=== PATIENT | male | born 1945 | race Caucasian/White ===

== ENCOUNTER 2022-10-02 08:27 | Inpatient (IN) | payer MEDICARE, MEDICAID ==
[~2022-10-02] VITALS: Ht 170.2 cm; Wt 75.8 kg
[2022-10-02] VITALS (8 sets, daily range): BP systolic 133–163; BP diastolic 62–83
[2022-10-02 09:50] LABS: CHLORIDE 102 mEq/L (98-107)
[2022-10-02 09:59] LABS: ETHANOL BLOOD < 10 mg/dL
[2022-10-02] MEDS ORDERED: CALCIUM CHLORIDE 1GM/10ML SYR IV ONE (10:15)
[2022-10-02] MEDS ORDERED: SODIUM BICARBONATE 8.4% 1 MEQ/ML 50ML SYR IV ONE (10:15)
[2022-10-02] MEDS ORDERED: ALBUTEROL (0.083%) 2.5MG/3ML NEB HHN ONE (10:15)
[2022-10-02] MEDS ORDERED: SODIUM BICARBONATE 8.4% 1 MEQ/ML 50ML SYR IV NR (10:45)
[2022-10-02] MEDS ORDERED: INSULIN REGULAR (HUMULIN R) 300UNITS/3ML VIAL IV ONE (11:00)
[2022-10-02] MEDS ORDERED: DEXTROSE 50% WATER 50ML SYRINGE IV ONE (11:00)
[2022-10-02 12:36] LABS: BASOPHILS % 0.3 % (0.0-2.0); EOSINOPHILS % 0.1 % (0.0-5.0); HEMATOCRIT. 21.9 % (42.0-52.0); HEMOGLOBIN. 7.2 g/dL (14.0-18.0); LYMPHOCYTES % 41.9 % (20.0-50.0); MEAN CORPUSCULAR HEMOGLOBIN 33.9 pg (28.0-32.0); MEAN CORPUSCULAR VOLUME 103.2 fL (80.0-94.0); MEAN PLATELET VOLUME 8.1 fl (7.4-10.4); MONOCYTES % 4.4 % (2.0-8.0); NEUTROPHILS % 53.3 % (40.0-76.0); RED BLOOD CELL COUNT 2.12 mill/uL (4.7-6.1); RED CELL DISTRIBUTION WIDTH 19.9 % (11.6-14.6)
[2022-10-02 12:52] LABS: PLATELET 49 x1000/uL (130-400)
[2022-10-02 12:56] LABS: PLATELET ESTIMATE MARKEDLY DECREASED
[2022-10-02] MEDS ORDERED: GUAIFENESIN 200MG/10ML SUGAR FREE UDC PO PRN (13:45)
[2022-10-02] MEDS ORDERED: NA PHOS,M-B/NA PHOS,DI-BA ENEMA 118ML PR PRN (13:45)
[2022-10-02] MEDS ORDERED: ENOXAPARIN 40MG/0.4ML SYR SUBCUT SCH (13:45)
[2022-10-02] MEDS ORDERED: ACETAMINOPHEN 325MG TABLET PO PRN (13:45)
[2022-10-02] MEDS ORDERED: MAGNESIUM/ALUMINUM HYDROXIDE/SIMETHICONE 30ML UDC PO PRN (13:45)
[2022-10-02] MEDS ORDERED: IPRATROPIUM/ALBUTEROL 0.5-3(2.5)MG/3ML NEB NEB PRN (13:45)
[2022-10-02] MEDS ORDERED: NITROGLYCERIN 0.4MG TABLET SL SL PRN (13:45)
[2022-10-02] MEDS ORDERED: ONDANSETRON HCL 4MG/2ML INJ IV PRN (13:45)
[2022-10-02] MEDS ORDERED: ZOLPIDEM TARTRATE 5MG TABLET PO PRN (13:45)
[2022-10-02] MEDS ORDERED: DOCUSATE SODIUM 100MG CAPSULE PO PRN (13:45)
[2022-10-02] MEDS ORDERED: SODIUM POLYSTYRENE SULFONATE 15 G/60 ML BOT PO SCH (14:00)
[2022-10-02 14:54] LABS: T4 FREE 0.62 ng/dL (0.76-1.46)
[2022-10-02 15:18] LABS: VITAMIN B12 SERUM 721 pg/mL (211-911)
[2022-10-02 15:30] LABS: FOLIC ACID (FOLATE) SERUM > 20.00 ng/mL (>5.38)
[2022-10-02] MEDS: AMLODIPINE 10MG TABLET PO SCH (16:08)
[2022-10-02 18:14] LABS: CREATINE KINASE 255 IU/L (39-308); CREATINE KINASE MB FRACTION 2.7 ng/mL (0.5-3.6)
[2022-10-02] MEDS: SEVELAMER CARBONATE 800 MG TABLET PO SCH (18:15)
[2022-10-02] MEDS ORDERED: FAMOTIDINE 20MG TABLET PO SCH (21:00)
[2022-10-02 23:31] LABS: CREATINE KINASE MB FRACTION 1.7 ng/mL (0.5-3.6)
[2022-10-03] VITALS (9 sets, daily range): BP systolic 121–199; BP diastolic 45–77
[2022-10-03] MEDS: ACETAMINOPHEN 325MG TABLET PO PRN ×2 (02:56→22:39)
[2022-10-03 06:10] LABS: BASOPHILS % 0.5 % (0.0-2.0); EOSINOPHILS % 0.3 % (0.0-5.0); LYMPHOCYTES % 32.2 % (20.0-50.0); MEAN CORPUSCULAR HEMOGLOBIN 34.6 pg (28.0-32.0); MEAN CORPUSCULAR VOLUME 107.9 fL (80.0-94.0); MONOCYTES % 5.9 % (2.0-8.0); NEUTROPHILS % 61.1 % (40.0-76.0); PLATELET 55 x1000/uL (130-400); RED BLOOD CELL COUNT 1.88 mill/uL (4.7-6.1); RED CELL DISTRIBUTION WIDTH 20.5 % (11.6-14.6)
[2022-10-03 06:49] LABS: CHLORIDE 104 mEq/L (98-107)
[2022-10-03 06:59] LABS: HEMATOCRIT. 20.2 % (42.0-52.0); HEMOGLOBIN. 6.5 g/dL (14.0-18.0)
[2022-10-03 07:02] LABS: PHOSPHORUS 5.2 mg/dL (2.5-4.9)
[2022-10-03] MEDS ORDERED: ASPIRIN 81MG EC TABLET PO SCH (09:00)
[2022-10-03] MEDS: SEVELAMER CARBONATE 800 MG TABLET PO SCH ×3 (09:30→18:20)
[2022-10-03] MEDS: AMLODIPINE 10MG TABLET PO SCH (09:30)
[2022-10-03] MEDS: LEVOTHYROXINE SODIUM 25MCG TABLET PO SCH (09:30)
[2022-10-03] MEDS: FAMOTIDINE 20MG TABLET PO SCH (09:31)
[2022-10-03] MEDS ORDERED: CARV6.2548 PO (13:48)
[2022-10-03] MEDS ORDERED: APIX2.5T PO (13:48)
[2022-10-03] MEDS ORDERED: ATOR40TA70 PO (13:48)
[2022-10-03] MEDS ORDERED: PANT40TA51 MT (13:48)
[2022-10-03] MEDS ORDERED: NIFE90TA60 PO (13:48)
[2022-10-03] MEDS ORDERED: FOLI0.8T23 MT (13:51)
[2022-10-03] MEDS ORDERED: PRED-276 MT (13:51)
[2022-10-03] MEDS ORDERED: MULT-1146 MT (13:51)
[2022-10-03] MEDS ORDERED: GABA-532 PO (13:51)
[2022-10-03] MEDS ORDERED: SERT20OR6 MT (13:51)
[2022-10-03] MEDS: CLONIDINE 0.1MG TABLET PO PRN ×2 (13:52→23:22)
[2022-10-03] MEDS ORDERED: ALBUTEROL (0.083%) 2.5MG/3ML NEB HHN PRN (14:00)
[2022-10-03] MEDS ORDERED: IPRATROPIUM BROMIDE (0.02%) 0.5MG/2.5ML NEB HHN PRN (14:00)
[2022-10-03] MEDS: NITROGLYCERIN OINT 1GM/INCH UDPKT TD SCH ×2 (14:10→21:05)
[2022-10-03 15:08] LABS: HEPATITIS B SURFACE ANTIGEN NEGATIVE
[2022-10-03] MEDS: LEVETIRACETAM 500MG/5ML CUP PO SCH (21:05)
[2022-10-03] MEDS: EPOETIN ALFA-EPBX 4,000 UNIT/ML VIAL SUBCUT SCH (21:05)
[2022-10-04] VITALS (12 sets, daily range): BP systolic 104–157; BP diastolic 52–82
[2022-10-04] MEDS: NITROGLYCERIN OINT 1GM/INCH UDPKT TD SCH ×3 (06:02→21:18)
[2022-10-04 06:28] LABS: BASOPHILS % 0.3 % (0.0-2.0); EOSINOPHILS % 4.7 % (0.0-5.0); HEMOGLOBIN. 7.2 g/dL (14.0-18.0); LYMPHOCYTES % 22.3 % (20.0-50.0); MEAN CORPUSCULAR HEMOGLOBIN 33.9 pg (28.0-32.0); MEAN PLATELET VOLUME 8.9 fl (7.4-10.4); MONOCYTES % 4.4 % (2.0-8.0); NEUTROPHILS % 68.3 % (40.0-76.0); PLATELET 61 x1000/uL (130-400); RED BLOOD CELL COUNT 2.11 mill/uL (4.7-6.1); RED CELL DISTRIBUTION WIDTH 20.5 % (11.6-14.6)
[2022-10-04 07:01] LABS: PHOSPHORUS 4.9 mg/dL (2.5-4.9)
[2022-10-04] MEDS: SEVELAMER CARBONATE 800 MG TABLET PO SCH ×3 (08:49→17:39)
[2022-10-04] MEDS: LEVETIRACETAM 500MG/5ML CUP PO SCH (08:49)
[2022-10-04] MEDS: FAMOTIDINE 20MG TABLET PO SCH (08:50)
[2022-10-04] MEDS: LEVOTHYROXINE SODIUM 25MCG TABLET PO SCH (08:50)
[2022-10-04] MEDS: AMLODIPINE 10MG TABLET PO SCH (08:50)
[2022-10-04] MEDS: ACETAMINOPHEN 325MG TABLET PO PRN (09:33)
[2022-10-05] VITALS (11 sets, daily range): BP systolic 126–155; BP diastolic 55–82
[2022-10-05] MEDS: NITROGLYCERIN OINT 1GM/INCH UDPKT TD SCH ×3 (06:12→21:14)
[2022-10-05] MEDS: ACETAMINOPHEN 325MG TABLET PO PRN (06:17)
[2022-10-05 08:49] LABS: BASOPHILS % 0.5 % (0.0-2.0); EOSINOPHILS % 3.1 % (0.0-5.0); LYMPHOCYTES % 34.5 % (20.0-50.0); MEAN CORPUSCULAR HEMOGLOBIN 34.1 pg (28.0-32.0); MEAN CORPUSCULAR VOLUME 101.8 fL (80.0-94.0); MEAN PLATELET VOLUME 8.4 fl (7.4-10.4); MONOCYTES % 4.1 % (2.0-8.0); NEUTROPHILS % 57.8 % (40.0-76.0); PLATELET 58 x1000/uL (130-400); RED BLOOD CELL COUNT 1.99 mill/uL (4.7-6.1); RED CELL DISTRIBUTION WIDTH 20.1 % (11.6-14.6)
[2022-10-05 09:08] LABS: PHOSPHORUS 3.3 mg/dL (2.5-4.9)
[2022-10-05 09:17] LABS: HEMATOCRIT. 20.3 % (42.0-52.0); HEMOGLOBIN. 6.8 g/dL (14.0-18.0)
[2022-10-05] MEDS: LEVOTHYROXINE SODIUM 25MCG TABLET PO SCH (09:41)
[2022-10-05] MEDS: SEVELAMER CARBONATE 800 MG TABLET PO SCH ×3 (09:41→17:38)
[2022-10-05] MEDS: FAMOTIDINE 20MG TABLET PO SCH (09:42)
[2022-10-05] MEDS: AMLODIPINE 10MG TABLET PO SCH (09:42)
[2022-10-05] MEDS ORDERED: SODIUM POLYSTYRENE SULFONATE 15 G/60 ML BOT PO NR (16:30)
[2022-10-05 20:10] LABS: HEMATOCRIT 24.7 % (42.0-52.0); HEMOGLOBIN 8.2 g/dL (14.0-18.0)
[2022-10-05] MEDS: EPOETIN ALFA-EPBX 4,000 UNIT/ML VIAL SUBCUT SCH (21:13)
[2022-10-06] VITALS: BP 140/70
[2022-10-06 04:00] VITALS: BP 173/88
[2022-10-06] MEDS: CLONIDINE 0.1MG TABLET PO PRN (05:02)
[2022-10-06] MEDS: NITROGLYCERIN OINT 1GM/INCH UDPKT TD SCH ×3 (06:02→20:54)
[2022-10-06 08:00] VITALS: BP 134/61
[2022-10-06 08:09] LABS: BASOPHILS % 0.2 % (0.0-2.0); EOSINOPHILS % 1.5 % (0.0-5.0); HEMATOCRIT. 26.3 % (42.0-52.0); HEMOGLOBIN. 8.9 g/dL (14.0-18.0); LYMPHOCYTES % 31.2 % (20.0-50.0); MEAN CORPUSCULAR HEMOGLOBIN 33.2 pg (28.0-32.0); MEAN CORPUSCULAR VOLUME 98.4 fL (80.0-94.0); MEAN PLATELET VOLUME 8.3 fl (7.4-10.4); MONOCYTES % 3.8 % (2.0-8.0); NEUTROPHILS % 63.3 % (40.0-76.0); PLATELET 67 x1000/uL (130-400); RED BLOOD CELL COUNT 2.67 mill/uL (4.7-6.1); RED CELL DISTRIBUTION WIDTH 21.5 % (11.6-14.6)
[2022-10-06] MEDS: SEVELAMER CARBONATE 800 MG TABLET PO SCH ×3 (08:28→18:48)
[2022-10-06] MEDS: FAMOTIDINE 20MG TABLET PO SCH (08:28)
[2022-10-06] MEDS: LEVOTHYROXINE SODIUM 25MCG TABLET PO SCH (08:28)
[2022-10-06] MEDS: AMLODIPINE 10MG TABLET PO SCH (08:29)
[2022-10-06 09:42] LABS: PHOSPHORUS 3.6 mg/dL (2.5-4.9)
[2022-10-06 12:00] VITALS: BP 138/61
[2022-10-06] MEDS ORDERED: SODIUM POLYSTYRENE SULFONATE 15 G/60 ML BOT PO NR (14:45)
[2022-10-06 16:00] VITALS: BP 142/65
[2022-10-06] MEDS: LISINOPRIL 20MG TABLET PO SCH (18:48)
[2022-10-06 20:00] VITALS: BP 158/81
[2022-10-07] VITALS (13 sets, daily range): BP systolic 135–174; BP diastolic 56–84
[2022-10-07] MEDS: ACETAMINOPHEN 325MG TABLET PO PRN ×2 (02:14→10:11)
[2022-10-07] MEDS: NITROGLYCERIN OINT 1GM/INCH UDPKT TD SCH ×3 (06:02→22:07)
[2022-10-07 06:24] LABS: BASOPHILS % 0.3 % (0.0-2.0); EOSINOPHILS % 2.7 % (0.0-5.0); LYMPHOCYTES % 43.8 % (20.0-50.0); MEAN CORPUSCULAR HEMOGLOBIN 32.5 pg (28.0-32.0); MEAN CORPUSCULAR VOLUME 97.4 fL (80.0-94.0); MEAN PLATELET VOLUME 8.2 fl (7.4-10.4); MONOCYTES % 4.2 % (2.0-8.0); PLATELET 54 x1000/uL (130-400); RED BLOOD CELL COUNT 2.46 mill/uL (4.7-6.1); RED CELL DISTRIBUTION WIDTH 21.2 % (11.6-14.6)
[2022-10-07] MEDS: LEVOTHYROXINE SODIUM 25MCG TABLET PO SCH (07:40)
[2022-10-07 08:10] LABS: CHLORIDE 105 mEq/L (98-107)
[2022-10-07] MEDS: SEVELAMER CARBONATE 800 MG TABLET PO SCH ×3 (08:10→18:47)
[2022-10-07 08:17] LABS: PHOSPHORUS 4.4 mg/dL (2.5-4.9)
[2022-10-07] MEDS: FAMOTIDINE 20MG TABLET PO SCH (09:00)
[2022-10-07] MEDS: LISINOPRIL 20MG TABLET PO SCH (09:00)
[2022-10-07] MEDS: AMLODIPINE 10MG TABLET PO SCH (09:00)
[2022-10-07] MEDS ORDERED: TRAMADOL 50MG TABLET PO PRN (15:00)
[2022-10-07] MEDS ORDERED: NALOXONE HCL 0.4MG/ML VIAL IV PRN (15:00)
[2022-10-07] MEDS ORDERED: IOHEXOL-300 100 ML BOTTLE ONE (22:58)
[2022-10-08] VITALS: BP 162/80
[2022-10-08] MEDS: CLONIDINE 0.1MG TABLET PO PRN (00:36)
[2022-10-08 04:00] VITALS: BP 141/68
[2022-10-08] MEDS: NITROGLYCERIN OINT 1GM/INCH UDPKT TD SCH (05:20)
[2022-10-08 05:47] LABS: BASOPHILS % 0.2 % (0.0-2.0); EOSINOPHILS % 3.1 % (0.0-5.0); HEMATOCRIT. 22.3 % (42.0-52.0); HEMOGLOBIN. 7.5 g/dL (14.0-18.0); LYMPHOCYTES % 41.3 % (20.0-50.0); MEAN CORPUSCULAR HEMOGLOBIN 32.6 pg (28.0-32.0); MEAN CORPUSCULAR VOLUME 96.5 fL (80.0-94.0); MEAN PLATELET VOLUME 7.9 fl (7.4-10.4); MONOCYTES % 5.7 % (2.0-8.0); NEUTROPHILS % 49.7 % (40.0-76.0); PLATELET 55 x1000/uL (130-400); RED BLOOD CELL COUNT 2.32 mill/uL (4.7-6.1); RED CELL DISTRIBUTION WIDTH 20.2 % (11.6-14.6)
[2022-10-08] MEDS: LEVOTHYROXINE SODIUM 25MCG TABLET PO SCH (06:47)
[2022-10-08 08:00] VITALS: BP 170/78
[2022-10-08] MEDS: LISINOPRIL 20MG TABLET PO SCH (08:50)
[2022-10-08] MEDS: SEVELAMER CARBONATE 800 MG TABLET PO SCH ×2 (08:50→13:29)
[2022-10-08] MEDS: FAMOTIDINE 20MG TABLET PO SCH (08:50)
[2022-10-08] MEDS: AMLODIPINE 10MG TABLET PO SCH (08:50)
[2022-10-08 12:00] VITALS: BP 175/78
[2022-10-08] MEDS: ACETAMINOPHEN 325MG TABLET PO PRN (13:29)
[2022-10-08 14:59] VITALS: BP 175/78
[2022-10-08 16:00] VITALS: BP 170/79
[2022-10-08] MEDS ORDERED: HYDRALAZINE HCL 25MG TABLET PO SCH (21:00)
== END 2022-10-08 15:47 | DRG 64 ==
LOC: ER 08:27 → MICUSO 11:45 → EDBEDREQ 11:47 → EDBEDREQTM 11:47 → SUPCPDRO 13:27 → 7WST 10-03 00:45
PROVIDERS: ADMIT Internal Medicine; ATTEND Internal Medicine
PROC: 5A1D70Z Performance of Urinary Filtration, Intermittent, Less than 6 Hours Per Day (ICD-10-PCS; principal; 2022-10-02)
PROC: 30233N1 Transfusion of Nonautologous Red Blood Cells into Peripheral Vein, Percutaneous Approach (ICD-10-PCS; 2022-10-03)
PROC: 5A1D70Z Performance of Urinary Filtration, Intermittent, Less than 6 Hours Per Day (ICD-10-PCS; 2022-10-04)
PROC: 5A1D70Z Performance of Urinary Filtration, Intermittent, Less than 6 Hours Per Day (ICD-10-PCS; 2022-10-07)
DX: I62.9 Nontraumatic intracranial hemorrhage, unspecified (principal); E43 Unspecified severe protein-calorie malnutrition; G92.8 Other toxic encephalopathy; N18.6 End stage renal disease; I12.0 Hypertensive chronic kidney disease with stage 5 chronic kidney disease or end stage renal disease; D61.818 Other pancytopenia; E87.1 Hypo-osmolality and hyponatremia; E87.5 Hyperkalemia; E03.9 Hypothyroidism, unspecified; E78.5 Hyperlipidemia, unspecified; D63.1 Anemia in chronic kidney disease; H02.401 Unspecified ptosis of right eyelid; H51.11 Convergence insufficiency; H05.20 Unspecified exophthalmos; Z68.26 Body mass index [BMI] 26.0-26.9, adult; Z99.2 Dependence on renal dialysis; Z82.49 Family history of ischemic heart disease and other diseases of the circulatory system
CPT/HCPCS: 36415; 70496; 70498; 70544; 70547; 70551; 71045; 71250; 80048; 80053; 80061; 80320; 82140; 82550; 82553; 82607; 82746; 82962; 83036; 83540; 83550; 83735; 84100; 84439; 84443; 84484; 85014; 85018; 85025; 86078; 86705; 86706; 86709; 86803; 86850; 86900; 86920; 87340; 90935; 92523; 93306; 93970; 94644; 97162; 97166; 99291; A6261; C1893; J0885; J1815; J3490; P9016; Q9967; G0480

== ENCOUNTER 2022-10-09 20:50 | Inpatient (IN) | payer MEDICARE, MEDICAID ==
[~2022-10-09] VITALS: Ht 175.3 cm; Wt 62.2 kg
[2022-10-09] VITALS (14 sets, daily range): BP systolic 98–191; BP diastolic 26–111
[~2022-10-09 20:50] MED LIST: APIX2.5T PO; ATOR40TA70 PO; CARV6.2548 PO; FOLI0.8T23 MT; GABA-532 PO; MULT-1146 MT; NIFE90TA60 PO; PANT40TA51 MT; PRED-855 MT; SERT20OR6 MT
[2022-10-09] MEDS ORDERED: IPRATROPIUM/ALBUTEROL 0.5-3(2.5)MG/3ML NEB NEB PRN (21:00)
[2022-10-09] MEDS ORDERED: CLONIDINE 0.1MG TABLET PO PRN (21:00)
[2022-10-09] MEDS ORDERED: ACETAMINOPHEN 650MG SUPP PR PRN ×2 (21:00)
[2022-10-09 21:27] LABS: CHLORIDE 101 mEq/L (98-107)
[2022-10-09 21:29] LABS: BASOPHILS % 0.3 % (0.0-2.0); EOSINOPHILS % 0.1 % (0.0-5.0); HEMATOCRIT. 29.8 % (42.0-52.0); HEMOGLOBIN. 9.5 g/dL (14.0-18.0); LYMPHOCYTES % 25.3 % (20.0-50.0); MEAN CORPUSCULAR HEMOGLOBIN 32.2 pg (28.0-32.0); MEAN CORPUSCULAR VOLUME 100.6 fL (80.0-94.0); MONOCYTES % 9.1 % (2.0-8.0); NEUTROPHILS % 65.2 % (40.0-76.0); PLATELET 53 x1000/uL (130-400); RED BLOOD CELL COUNT 2.96 mill/uL (4.7-6.1); RED CELL DISTRIBUTION WIDTH 21.1 % (11.6-14.6)
[2022-10-09] MEDS ORDERED: DEXT 5%/0.9% NACL 1,000 ML IV SCH (21:30)
[2022-10-09] MEDS: FAMOTIDINE 20MG/2ML VIAL IV SCH (22:06)
[2022-10-09] MEDS ORDERED: DEXTROSE 50% WATER 50ML SYRINGE IV PRN (22:15)
[2022-10-09] MEDS ORDERED: INSULIN REGULAR (HUMULIN R) 300UNITS/3ML VIAL IV NR (22:30)
[2022-10-09] MEDS ORDERED: CALCIUM CHLORIDE 1GM/10ML SYR IV NR (22:30)
[2022-10-09] MEDS ORDERED: DEXTROSE 50% WATER 50ML SYRINGE IV NR (22:30)
[2022-10-09] MEDS ORDERED: ALBUTEROL (0.083%) 2.5MG/3ML NEB HHN NR (22:30)
[2022-10-09] MEDS ORDERED: SODIUM BICARBONATE 8.4% 1 MEQ/ML 50ML SYR IV NR (22:30)
[2022-10-09] MEDS: BLOOD SUGAR DIAGNOSTIC STRIP TEST SCH (23:14)
[2022-10-10] VITALS (74 sets, daily range): BP systolic 87–182; BP diastolic 44–107
[2022-10-10 00:01] LABS: CREATINE KINASE MB FRACTION 2.1 ng/mL (0.5-3.6)
[2022-10-10 02:44] LABS: BG BASE EXCESS -3.3 mmol/L (-2.0-2.0); BG CARBOXYHEMOGLOBIN 0.3 % (0.5-1.5); BG DEOXYHEMOGLOBIN 14.6 % (0.0-5.0); BG FRACTION INSPIRED OXYGEN 28; BG HCO3 ACT 21.1 mmol/L (22.0-26.0); BG METHEMOGLOBIN 0.3 % (0.0-1.5); BG OXYGEN SATURATION 85.3 % (92.0-98.5); BG OXYHEMOGLOBIN 84.8 % (94.0-97.0); BG PCO2 34.7 mmHg (35.0-45.0); BG PH 7.401 (7.350-7.450); BG PO2 57.8 mmHg (75.0-100.0); BG SAMPLE SITE RIGHT RADIAL; BG TOTAL HEMOGLOBIN 7.9 g/dL (12.0-18.0); BG VENT MODE NASAL CANNULA
[2022-10-10] MEDS ORDERED: LORAZEPAM 2MG/ML CPJ IV NR (03:00)
[2022-10-10] MEDS: HYDRALAZINE 20MG/ML VIAL IV PRN (04:10)
[2022-10-10] MEDS: BLOOD SUGAR DIAGNOSTIC STRIP TEST SCH ×4 (05:32→23:07)
[2022-10-10 05:36] LABS: BASOPHILS % 0.1 % (0.0-2.0); HEMATOCRIT. 23.9 % (42.0-52.0); HEMOGLOBIN. 7.9 g/dL (14.0-18.0); LYMPHOCYTES % 25.3 % (20.0-50.0); MEAN CORPUSCULAR HEMOGLOBIN 32.9 pg (28.0-32.0); MEAN CORPUSCULAR VOLUME 99.1 fL (80.0-94.0); MEAN PLATELET VOLUME 8.7 fl (7.4-10.4); MONOCYTES % 6.5 % (2.0-8.0); NEUTROPHILS % 68.1 % (40.0-76.0); PLATELET 56 x1000/uL (130-400); RED BLOOD CELL COUNT 2.41 mill/uL (4.7-6.1); RED CELL DISTRIBUTION WIDTH 20.7 % (11.6-14.6)
[2022-10-10 06:08] LABS: CREATINE KINASE MB FRACTION 3.5 ng/mL (0.5-3.6); T4 FREE 0.95 ng/dL (0.76-1.46)
[2022-10-10 06:19] LABS: FOLIC ACID (FOLATE) SERUM > 20.00 ng/mL (>5.38); VITAMIN B12 SERUM > 2000.0 pg/mL (211-911)
[2022-10-10 06:34] LABS: BG BASE EXCESS -1.2 mmol/L (-2.0-2.0); BG DEOXYHEMOGLOBIN 4.8 % (0.0-5.0); BG FRACTION INSPIRED OXYGEN 28; BG HCO3 ACT 22.7 mmol/L (22.0-26.0); BG METHEMOGLOBIN 0.6 % (0.0-1.5); BG OXYGEN SATURATION 95.2 % (92.0-98.5); BG OXYHEMOGLOBIN 94.6 % (94.0-97.0); BG PCO2 34.4 mmHg (35.0-45.0); BG PH 7.438 (7.350-7.450); BG SAMPLE SITE RIGHT RADIAL; BG TOTAL HEMOGLOBIN 7.8 g/dL (12.0-18.0); BG VENT MODE NASAL CANNULA
[2022-10-10] MEDS ORDERED: DOPAMINE 400MG/250ML PREMIX 250 ML IV PRN (07:15)
[2022-10-10] MEDS ORDERED: IOHEXOL-350 100 ML BOTTLE ONE (09:17)
[2022-10-10] MEDS: FAMOTIDINE 20MG/2ML VIAL IV SCH (09:52)
[2022-10-10] MEDS: LEVOTHYROXINE SODIUM 25MCG TABLET PO SCH (09:52)
[2022-10-10 10:05] LABS: FERRITIN > 1650 ng/mL (22-322)
[2022-10-10] MEDS: MEROPENEM 500 MG in SODIUM CHLORIDE 0.9% 100 ML IV SCH (12:49)
[2022-10-10 13:09] LABS: CREATINE KINASE MB FRACTION 5.6 ng/mL (0.5-3.6)
[2022-10-10] MEDS ORDERED: VANCOMYCIN 1G PREMIX 200 ML IV NR (14:00)
[2022-10-10 21:39] LABS: CREATINE KINASE MB FRACTION 5.5 ng/mL (0.5-3.6)
[2022-10-11] VITALS (30 sets, daily range): BP systolic 87–166; BP diastolic 30–79
[2022-10-11] MEDS: BLOOD SUGAR DIAGNOSTIC STRIP TEST SCH ×4 (05:44→23:58)
[2022-10-11 06:27] LABS: BASOPHILS % 0.3 % (0.0-2.0); EOSINOPHILS % 1.3 % (0.0-5.0); HEMATOCRIT. 22.7 % (42.0-52.0); HEMOGLOBIN. 7.4 g/dL (14.0-18.0); LYMPHOCYTES % 29.4 % (20.0-50.0); MEAN CORPUSCULAR HEMOGLOBIN 32.2 pg (28.0-32.0); MEAN CORPUSCULAR VOLUME 99.5 fL (80.0-94.0); MONOCYTES % 3.3 % (2.0-8.0); NEUTROPHILS % 65.7 % (40.0-76.0); PLATELET 101 x1000/uL (130-400); RED BLOOD CELL COUNT 2.28 mill/uL (4.7-6.1); RED CELL DISTRIBUTION WIDTH 20.7 % (11.6-14.6)
[2022-10-11] MEDS: LEVOTHYROXINE SODIUM 25MCG TABLET PO SCH (10:18)
[2022-10-11] MEDS: FAMOTIDINE 20MG/2ML VIAL IV SCH (10:19)
[2022-10-11] MEDS ORDERED: ACETAMINOPHEN 650MG/20.3ML UDC PO PRN (10:45)
[2022-10-11] MEDS: MEROPENEM 500 MG in SODIUM CHLORIDE 0.9% 100 ML IV SCH (12:33)
[2022-10-11] MEDS ORDERED: ALBUTEROL (0.083%) 2.5MG/3ML NEB HHN PRN (15:15)
[2022-10-11] MEDS ORDERED: IPRATROPIUM BROMIDE (0.02%) 0.5MG/2.5ML NEB HHN PRN (15:15)
[2022-10-11] MEDS: EPOETIN ALFA-EPBX 4,000 UNIT/ML VIAL SUBCUT SCH (20:54)
[2022-10-12] VITALS (14 sets, daily range): BP systolic 137–190; BP diastolic 61–103
[2022-10-12] MEDS: BLOOD SUGAR DIAGNOSTIC STRIP TEST SCH ×3 (06:23→18:07)
[2022-10-12] MEDS: LEVOTHYROXINE SODIUM 25MCG TABLET PO SCH (06:24)
[2022-10-12 08:11] LABS: BASOPHILS % 0.4 % (0.0-2.0); LYMPHOCYTES % 36.4 % (20.0-50.0); MEAN CORPUSCULAR HEMOGLOBIN 32.5 pg (28.0-32.0); MEAN CORPUSCULAR VOLUME 98.6 fL (80.0-94.0); MONOCYTES % 5.7 % (2.0-8.0); NEUTROPHILS % 54.5 % (40.0-76.0); RED BLOOD CELL COUNT 2.16 mill/uL (4.7-6.1)
[2022-10-12 08:16] LABS: HEMATOCRIT. 21.3 % (42.0-52.0)
[2022-10-12] MEDS: FAMOTIDINE 20MG/2ML VIAL IV SCH (09:23)
[2022-10-12] MEDS: ONDANSETRON HCL 4MG/2ML INJ IV PRN ×2 (09:23→20:19)
[2022-10-12] MEDS: MEROPENEM 500 MG in SODIUM CHLORIDE 0.9% 100 ML IV SCH (13:13)
[2022-10-12] MEDS: AMLODIPINE 2.5MG TABLET PO SCH (13:13)
[2022-10-12 16:00] LABS: PLATELET ESTIMATE MARKEDLY DECREASED
[2022-10-12 16:01] LABS: PLATELET 49 x1000/uL (130-400)
[2022-10-12] MEDS ORDERED: VANCOMYCIN 500MG PREMIX 100 ML IV NR (18:00)
[2022-10-13] VITALS (7 sets, daily range): BP systolic 146–160; BP diastolic 56–90
[2022-10-13] MEDS: BLOOD SUGAR DIAGNOSTIC STRIP TEST SCH ×4 (00:19→18:05)
[2022-10-13] MEDS: LEVOTHYROXINE SODIUM 25MCG TABLET PO SCH (05:50)
[2022-10-13] MEDS: GUAIFENESIN 200MG/10ML SUGAR FREE UDC PO PRN ×2 (08:48→20:40)
[2022-10-13] MEDS: AMLODIPINE 2.5MG TABLET PO SCH (09:07)
[2022-10-13 10:42] LABS: BASOPHILS % 0.1 % (0.0-2.0); EOSINOPHILS % 0.1 % (0.0-5.0); HEMATOCRIT. 28.8 % (42.0-52.0); HEMOGLOBIN. 9.7 g/dL (14.0-18.0); LYMPHOCYTES % 13.8 % (20.0-50.0); MEAN CORPUSCULAR HEMOGLOBIN 31.7 pg (28.0-32.0); MEAN CORPUSCULAR VOLUME 94.6 fL (80.0-94.0); MEAN PLATELET VOLUME 7.2 fl (7.4-10.4); MONOCYTES % 5.3 % (2.0-8.0); NEUTROPHILS % 80.7 % (40.0-76.0); RED BLOOD CELL COUNT 3.05 mill/uL (4.7-6.1); RED CELL DISTRIBUTION WIDTH 18.6 % (11.6-14.6)
[2022-10-13] MEDS: MEROPENEM 500 MG in SODIUM CHLORIDE 0.9% 100 ML IV SCH (11:30)
[2022-10-13 13:05] LABS: PLATELET 41 x1000/uL (130-400)
[2022-10-14] VITALS (19 sets, daily range): BP systolic 120–208; BP diastolic 60–110
[2022-10-14] MEDS: BLOOD SUGAR DIAGNOSTIC STRIP TEST SCH ×4 (02:03→17:06)
[2022-10-14 06:47] LABS: BASOPHILS % 0.5 % (0.0-2.0); HEMATOCRIT. 31.9 % (42.0-52.0); HEMOGLOBIN. 10.5 g/dL (14.0-18.0); LYMPHOCYTES % 11.2 % (20.0-50.0); MEAN CORPUSCULAR HEMOGLOBIN 31.2 pg (28.0-32.0); MEAN CORPUSCULAR VOLUME 94.8 fL (80.0-94.0); MEAN PLATELET VOLUME 9.2 fl (7.4-10.4); MONOCYTES % 6.6 % (2.0-8.0); NEUTROPHILS % 81.7 % (40.0-76.0); RED BLOOD CELL COUNT 3.36 mill/uL (4.7-6.1); RED CELL DISTRIBUTION WIDTH 19.9 % (11.6-14.6)
[2022-10-14] MEDS: LEVOTHYROXINE SODIUM 25MCG TABLET PO SCH (07:21)
[2022-10-14 08:00] LABS: PHOSPHORUS 4.3 mg/dL (2.5-4.9)
[2022-10-14 08:11] LABS: PLATELET 42 x1000/uL (130-400)
[2022-10-14] MEDS ORDERED: AMLODIPINE 5MG TABLET PO SCH (09:00)
[2022-10-14] MEDS ORDERED: LORAZEPAM 2MG/ML CPJ IV PRN (09:30)
[2022-10-14] MEDS: MEROPENEM 500 MG in SODIUM CHLORIDE 0.9% 100 ML IV SCH (12:09)
[2022-10-14] MEDS: HYDRALAZINE 20MG/ML VIAL IV PRN ×2 (12:10→17:06)
[2022-10-14] MEDS: HYDRALAZINE HCL 50MG TABLET PO SCH ×2 (13:08→21:45)
[2022-10-14] MEDS: FOLIC ACID/VITAMIN B COMP W-C TABLET PO SCH (14:30)
[2022-10-14] MEDS: DEXT 5%/0.9% NACL 1,000 ML IV SCH (16:28)
[2022-10-14] MEDS ORDERED: VANCOMYCIN 500MG PREMIX 100 ML IV SCH (16:30)
[2022-10-14 18:49] LABS: INR 1.3; PROTHROMBIN TIME 14.2 sec (9.6-11.0)
[2022-10-14] MEDS ORDERED: VANCOMYCIN 1G PREMIX 200 ML IV SCH (19:14)
[2022-10-14 19:46] LABS: HEPATITIS B SURFACE ANTIGEN NEGATIVE
[2022-10-15] VITALS (19 sets, daily range): BP systolic 139–161; BP diastolic 65–96
[2022-10-15] MEDS: BLOOD SUGAR DIAGNOSTIC STRIP TEST SCH ×4 (00:13→18:38)
[2022-10-15] MEDS: HYDRALAZINE HCL 50MG TABLET PO SCH ×3 (05:52→21:11)
[2022-10-15 06:35] LABS: INR 1.6; PROTHROMBIN TIME 16.3 sec (9.6-11.0)
[2022-10-15] MEDS: LEVOTHYROXINE SODIUM 25MCG TABLET PO SCH (06:40)
[2022-10-15 06:42] LABS: BASOPHILS % 0.1 % (0.0-2.0); EOSINOPHILS % 0.2 % (0.0-5.0); HEMOGLOBIN. 9.6 g/dL (14.0-18.0); LYMPHOCYTES % 13.3 % (20.0-50.0); MEAN CORPUSCULAR HEMOGLOBIN 31.7 pg (28.0-32.0); MEAN CORPUSCULAR VOLUME 96.1 fL (80.0-94.0); MEAN PLATELET VOLUME 8.4 fl (7.4-10.4); MONOCYTES % 6.2 % (2.0-8.0); NEUTROPHILS % 80.2 % (40.0-76.0); RED BLOOD CELL COUNT 3.02 mill/uL (4.7-6.1); RED CELL DISTRIBUTION WIDTH 19.5 % (11.6-14.6)
[2022-10-15] MEDS: FOLIC ACID/VITAMIN B COMP W-C TABLET PO SCH (09:00)
[2022-10-15] MEDS: AMLODIPINE 10MG TABLET PO SCH (09:00)
[2022-10-15 12:00] LABS: PLATELET 29 x1000/uL (130-400)
[2022-10-15] MEDS: DEXT 5%/0.9% NACL 1,000 ML IV SCH (15:54)
[2022-10-15] MEDS: PHYTONADIONE 10MG/ML AMP SUBCUT SCH (15:54)
[2022-10-16] VITALS (12 sets, daily range): BP systolic 140–188; BP diastolic 72–90
[2022-10-16] MEDS: BLOOD SUGAR DIAGNOSTIC STRIP TEST SCH ×4 (00:15→17:42)
[2022-10-16 01:11] LABS: HEMOGLOBIN 8.5 g/dL (14.0-18.0)
[2022-10-16 01:50] LABS: INR 1.4
[2022-10-16] MEDS: HYDRALAZINE HCL 50MG TABLET PO SCH ×3 (05:45→22:00)
[2022-10-16] MEDS: LEVOTHYROXINE SODIUM 25MCG TABLET PO SCH (05:45)
[2022-10-16 08:07] LABS: BASOPHILS % 0.2 % (0.0-2.0); EOSINOPHILS % 0.3 % (0.0-5.0); HEMATOCRIT. 27.3 % (42.0-52.0); HEMOGLOBIN. 8.9 g/dL (14.0-18.0); LYMPHOCYTES % 19.6 % (20.0-50.0); MEAN CORPUSCULAR HEMOGLOBIN 31.7 pg (28.0-32.0); MEAN CORPUSCULAR VOLUME 96.8 fL (80.0-94.0); MEAN PLATELET VOLUME 8.7 fl (7.4-10.4); MONOCYTES % 7.5 % (2.0-8.0); NEUTROPHILS % 72.4 % (40.0-76.0); RED BLOOD CELL COUNT 2.82 mill/uL (4.7-6.1); RED CELL DISTRIBUTION WIDTH 18.9 % (11.6-14.6)
[2022-10-16 08:12] LABS: PLATELET 32 x1000/uL (130-400)
[2022-10-16 08:34] LABS: PHOSPHORUS 4.4 mg/dL (2.5-4.9)
[2022-10-16] MEDS: PHYTONADIONE 10MG/ML AMP SUBCUT SCH (09:27)
[2022-10-16] MEDS: FOLIC ACID/VITAMIN B COMP W-C TABLET PO SCH (10:57)
[2022-10-16] MEDS: AMLODIPINE 10MG TABLET PO SCH (10:58)
[2022-10-16] MEDS: DEXT 5%/0.9% NACL 1,000 ML IV SCH (15:37)
[2022-10-16] MEDS: HYDRALAZINE 20MG/ML VIAL IV PRN (17:06)
[2022-10-16] MEDS: EPOETIN ALFA-EPBX 4,000 UNIT/ML VIAL SUBCUT SCH (21:00)
[2022-10-17] VITALS (14 sets, daily range): BP systolic 133–188; BP diastolic 63–93
[2022-10-17] MEDS: HYDRALAZINE 20MG/ML VIAL IV PRN ×3 (01:07→18:16)
[2022-10-17 03:57] LABS: BASOPHILS % 0.2 % (0.0-2.0); EOSINOPHILS % 0.2 % (0.0-5.0); HEMATOCRIT. 27.9 % (42.0-52.0); HEMOGLOBIN. 9.1 g/dL (14.0-18.0); LYMPHOCYTES % 16.2 % (20.0-50.0); MEAN CORPUSCULAR HEMOGLOBIN 31.1 pg (28.0-32.0); MEAN CORPUSCULAR VOLUME 95.2 fL (80.0-94.0); MEAN PLATELET VOLUME 8.2 fl (7.4-10.4); MONOCYTES % 7.8 % (2.0-8.0); NEUTROPHILS % 75.6 % (40.0-76.0); RED BLOOD CELL COUNT 2.93 mill/uL (4.7-6.1); RED CELL DISTRIBUTION WIDTH 18.3 % (11.6-14.6)
[2022-10-17 04:05] LABS: INR 1.3; PROTHROMBIN TIME 13.6 sec (9.6-11.0)
[2022-10-17 04:20] LABS: PLATELET 35 x1000/uL (130-400)
[2022-10-17] MEDS: BLOOD SUGAR DIAGNOSTIC STRIP TEST SCH ×5 (06:00→21:45)
[2022-10-17] MEDS: HYDRALAZINE HCL 50MG TABLET PO SCH ×3 (06:00→21:45)
[2022-10-17] MEDS: LEVOTHYROXINE SODIUM 25MCG TABLET PO SCH (06:40)
[2022-10-17] MEDS: FOLIC ACID/VITAMIN B COMP W-C TABLET PO SCH (08:13)
[2022-10-17] MEDS: AMLODIPINE 10MG TABLET PO SCH (08:13)
[2022-10-17] MEDS: PHYTONADIONE 10MG/ML AMP SUBCUT SCH (08:17)
[2022-10-17] MEDS ORDERED: VANCOMYCIN 1G PREMIX 200 ML IV NR (11:00)
[2022-10-17] MEDS ORDERED: FENTANYL CITRATE/PF 50MCG/ML 2ML VIAL ONE (14:23)
[2022-10-17] MEDS ORDERED: LIDOCAINE HCL 1% 10 MG/ML 10ML VIAL ONE (14:23)
[2022-10-17] MEDS: DEXT 5%/0.9% NACL 1,000 ML IV SCH (15:18)
[2022-10-17] MEDS ORDERED: ONDANSETRON HCL 4MG/2ML INJ IV PRN (15:30)
[2022-10-17] MEDS ORDERED: ONDANSETRON HCL 4MG/2ML INJ ONE (15:34)
[2022-10-17 19:03] LABS: HEMATOCRIT 27.1 % (42.0-52.0); HEMOGLOBIN 8.8 g/dL (14.0-18.0)
[2022-10-18] VITALS (17 sets, daily range): BP systolic 127–167; BP diastolic 45–84
[2022-10-18 02:32] LABS: HEMATOCRIT 26.4 % (42.0-52.0)
[2022-10-18] MEDS: BLOOD SUGAR DIAGNOSTIC STRIP TEST SCH ×3 (06:00→18:00)
[2022-10-18] MEDS: METOCLOPRAMIDE HCL 10MG/2ML VIAL IV SCH ×4 (06:46→22:49)
[2022-10-18] MEDS: HYDRALAZINE HCL 50MG TABLET PO SCH ×3 (06:46→22:48)
[2022-10-18] MEDS: LEVOTHYROXINE SODIUM 25MCG TABLET PO SCH (06:46)
[2022-10-18 07:11] LABS: BASOPHILS % 0.1 % (0.0-2.0); EOSINOPHILS % 0.2 % (0.0-5.0); HEMATOCRIT. 25.4 % (42.0-52.0); HEMOGLOBIN. 8.3 g/dL (14.0-18.0); LYMPHOCYTES % 13.7 % (20.0-50.0); MEAN CORPUSCULAR HEMOGLOBIN 31.4 pg (28.0-32.0); MEAN CORPUSCULAR VOLUME 96.1 fL (80.0-94.0); MEAN PLATELET VOLUME 8.1 fl (7.4-10.4); MONOCYTES % 6.8 % (2.0-8.0); NEUTROPHILS % 79.2 % (40.0-76.0); RED BLOOD CELL COUNT 2.64 mill/uL (4.7-6.1); RED CELL DISTRIBUTION WIDTH 18.7 % (11.6-14.6)
[2022-10-18 08:02] LABS: CHLORIDE 107 mEq/L (98-107)
[2022-10-18 08:47] LABS: PLATELET 35 x1000/uL (130-400)
[2022-10-18] MEDS: FOLIC ACID/VITAMIN B COMP W-C TABLET PO SCH (09:25)
[2022-10-18] MEDS: AMLODIPINE 10MG TABLET PO SCH (09:25)
[2022-10-18 13:03] LABS: HEMATOCRIT 26.7 % (42.0-52.0); HEMOGLOBIN 8.7 g/dL (14.0-18.0)
[2022-10-18] MEDS: DEXT 5%/0.9% NACL 1,000 ML IV SCH (14:34)
[2022-10-18] MEDS: EPOETIN ALFA-EPBX 4,000 UNIT/ML VIAL SUBCUT SCH (22:48)
[2022-10-19] VITALS: BP 157/72
[2022-10-19 04:00] VITALS: BP 157/78
[2022-10-19] MEDS: BLOOD SUGAR DIAGNOSTIC STRIP TEST SCH ×5 (06:13→23:23)
[2022-10-19] MEDS: HYDRALAZINE HCL 50MG TABLET PO SCH ×3 (06:24→20:57)
[2022-10-19] MEDS: METOCLOPRAMIDE HCL 10MG/2ML VIAL IV SCH ×4 (06:24→23:23)
[2022-10-19] MEDS: LEVOTHYROXINE SODIUM 25MCG TABLET PO SCH (06:24)
[2022-10-19 08:00] VITALS: BP 210/110
[2022-10-19] MEDS: AMLODIPINE 10MG TABLET PO SCH (09:22)
[2022-10-19] MEDS: FOLIC ACID/VITAMIN B COMP W-C TABLET PO SCH (09:22)
[2022-10-19] MEDS: HYDRALAZINE 20MG/ML VIAL IV PRN ×2 (09:24→17:26)
[2022-10-19 12:00] VITALS: BP 177/81
[2022-10-19 16:00] VITALS: BP 167/74
[2022-10-19 20:00] VITALS: BP 154/81
[2022-10-20] VITALS: BP 156/72
[2022-10-20 04:00] VITALS: BP 157/77
[2022-10-20] MEDS: BLOOD SUGAR DIAGNOSTIC STRIP TEST SCH ×4 (05:39→23:29)
[2022-10-20] MEDS: LEVOTHYROXINE SODIUM 25MCG TABLET PO SCH (05:43)
[2022-10-20] MEDS: HYDRALAZINE HCL 50MG TABLET PO SCH ×3 (05:43→20:28)
[2022-10-20 08:00] VITALS: BP 161/78
[2022-10-20] MEDS: AMLODIPINE 10MG TABLET PO SCH (09:56)
[2022-10-20] MEDS: FOLIC ACID/VITAMIN B COMP W-C TABLET PO SCH (09:56)
[2022-10-20 12:00] VITALS: BP 158/81
[2022-10-20 16:00] VITALS: BP 148/74
[2022-10-20 20:00] VITALS: BP 157/79
[2022-10-21] VITALS (12 sets, daily range): BP systolic 111–163; BP diastolic 45–86
[2022-10-21] MEDS: BLOOD SUGAR DIAGNOSTIC STRIP TEST SCH ×4 (05:06→23:44)
[2022-10-21] MEDS: HYDRALAZINE HCL 50MG TABLET PO SCH ×3 (05:06→21:29)
[2022-10-21] MEDS: LEVOTHYROXINE SODIUM 25MCG TABLET PO SCH (05:42)
[2022-10-21 06:43] LABS: BASOPHILS % 0.2 % (0.0-2.0); EOSINOPHILS % 0.9 % (0.0-5.0); HEMATOCRIT. 27.3 % (42.0-52.0); HEMOGLOBIN. 9.2 g/dL (14.0-18.0); LYMPHOCYTES % 24.6 % (20.0-50.0); MEAN CORPUSCULAR HEMOGLOBIN 33.6 pg (28.0-32.0); MEAN CORPUSCULAR VOLUME 99.4 fL (80.0-94.0); MEAN PLATELET VOLUME 8.5 fl (7.4-10.4); MONOCYTES % 7.4 % (2.0-8.0); NEUTROPHILS % 66.9 % (40.0-76.0); RED BLOOD CELL COUNT 2.74 mill/uL (4.7-6.1); RED CELL DISTRIBUTION WIDTH 18.8 % (11.6-14.6)
[2022-10-21 07:49] LABS: PHOSPHORUS 4.2 mg/dL (2.5-4.9)
[2022-10-21 08:46] LABS: PLATELET 46 x1000/uL (130-400)
[2022-10-21] MEDS: AMLODIPINE 10MG TABLET PO SCH (09:00)
[2022-10-21] MEDS: FOLIC ACID/VITAMIN B COMP W-C TABLET PO SCH (10:14)
[2022-10-21] MEDS: EPOETIN ALFA-EPBX 4,000 UNIT/ML VIAL SUBCUT SCH (21:29)
[2022-10-21 21:57] LABS: PLATELET ESTIMATE MARKEDLY DECREASED
[2022-10-22] VITALS: BP 143/80
[2022-10-22 04:00] VITALS: BP 157/81
[2022-10-22] MEDS: BLOOD SUGAR DIAGNOSTIC STRIP TEST SCH ×3 (05:17→17:19)
[2022-10-22] MEDS: HYDRALAZINE HCL 50MG TABLET PO SCH ×2 (06:14→15:01)
[2022-10-22] MEDS: LEVOTHYROXINE SODIUM 25MCG TABLET PO SCH (06:14)
[2022-10-22 07:18] LABS: BASOPHILS % 0.4 % (0.0-2.0); EOSINOPHILS % 0.7 % (0.0-5.0); HEMATOCRIT. 22.7 % (42.0-52.0); HEMOGLOBIN. 7.8 g/dL (14.0-18.0); LYMPHOCYTES % 21.5 % (20.0-50.0); MEAN CORPUSCULAR HEMOGLOBIN 34.7 pg (28.0-32.0); MEAN CORPUSCULAR VOLUME 100.6 fL (80.0-94.0); MEAN PLATELET VOLUME 8.5 fl (7.4-10.4); MONOCYTES % 5.9 % (2.0-8.0); NEUTROPHILS % 71.5 % (40.0-76.0); RED BLOOD CELL COUNT 2.26 mill/uL (4.7-6.1); RED CELL DISTRIBUTION WIDTH 18.3 % (11.6-14.6)
[2022-10-22 08:00] VITALS: BP 154/74
[2022-10-22 09:03] LABS: PLATELET 45 x1000/uL (130-400)
[2022-10-22] MEDS: FOLIC ACID/VITAMIN B COMP W-C TABLET PO SCH (09:42)
[2022-10-22] MEDS: AMLODIPINE 10MG TABLET PO SCH (09:42)
[2022-10-22 12:00] VITALS: BP 149/67
[2022-10-22 16:00] VITALS: BP 129/65
[2022-10-22 19:20] VITALS: BP 129/65
== END 2022-10-22 19:50 | DRG 871 ==
LOC: CVICU 20:50 → 5EST 10-11 13:40 → 3WST 10-11 18:18 → 7EST 10-14 22:45
PROVIDERS: ADMIT Internal Medicine; ATTEND Internal Medicine
PROC: 5A1D70Z Performance of Urinary Filtration, Intermittent, Less than 6 Hours Per Day (ICD-10-PCS; 2022-10-10)
PROC: 30233N1 Transfusion of Nonautologous Red Blood Cells into Peripheral Vein, Percutaneous Approach (ICD-10-PCS; 2022-10-12)
PROC: 5A1D70Z Performance of Urinary Filtration, Intermittent, Less than 6 Hours Per Day (ICD-10-PCS; 2022-10-12)
PROC: 5A1D70Z Performance of Urinary Filtration, Intermittent, Less than 6 Hours Per Day (ICD-10-PCS; 2022-10-14)
PROC: 30233K1 Transfusion of Nonautologous Frozen Plasma into Peripheral Vein, Percutaneous Approach (ICD-10-PCS; 2022-10-15)
PROC: 30233R1 Transfusion of Nonautologous Platelets into Peripheral Vein, Percutaneous Approach (ICD-10-PCS; 2022-10-15)
PROC: 5A1D70Z Performance of Urinary Filtration, Intermittent, Less than 6 Hours Per Day (ICD-10-PCS; 2022-10-16)
PROC: 0DB68ZX Excision of Stomach, Via Natural or Artificial Opening Endoscopic, Diagnostic (ICD-10-PCS; principal; 2022-10-17)
PROC: 0DH63UZ Insertion of Feeding Device into Stomach, Percutaneous Approach (ICD-10-PCS; 2022-10-17)
PROC: 5A1D70Z Performance of Urinary Filtration, Intermittent, Less than 6 Hours Per Day (ICD-10-PCS; 2022-10-18)
PROC: 5A1D70Z Performance of Urinary Filtration, Intermittent, Less than 6 Hours Per Day (ICD-10-PCS; 2022-10-21)
DX: A41.9 Sepsis, unspecified organism (principal); G92.8 Other toxic encephalopathy; I21.4 Non-ST elevation (NSTEMI) myocardial infarction; N18.6 End stage renal disease; J96.91 Respiratory failure, unspecified with hypoxia; I50.31 Acute diastolic (congestive) heart failure; J69.0 Pneumonitis due to inhalation of food and vomit; U07.1 COVID-19; I13.2 Hypertensive heart and chronic kidney disease with heart failure and with stage 5 chronic kidney disease, or end stage renal disease; G81.91 Hemiplegia, unspecified affecting right dominant side; R47.01 Aphasia; E46 Unspecified protein-calorie malnutrition; E87.5 Hyperkalemia; E03.9 Hypothyroidism, unspecified; E78.5 Hyperlipidemia, unspecified; Z20.822 Contact with and (suspected) exposure to COVID-19; D53.9 Nutritional anemia, unspecified; R13.10 Dysphagia, unspecified; I44.0 Atrioventricular block, first degree; K29.70 Gastritis, unspecified, without bleeding; K29.80 Duodenitis without bleeding; D63.1 Anemia in chronic kidney disease; R62.7 Adult failure to thrive; D69.6 Thrombocytopenia, unspecified; R26.9 Unspecified abnormalities of gait and mobility; H02.401 Unspecified ptosis of right eyelid; H51.11 Convergence insufficiency; R47.02 Dysphasia; I16.0 Hypertensive urgency; Z66 Do not resuscitate; Z99.2 Dependence on renal dialysis; Z95.2 Presence of prosthetic heart valve; Z91.15 Patient's noncompliance with renal dialysis; Z68.20 Body mass index [BMI] 20.0-20.9, adult; Z86.73 Personal history of transient ischemic attack (TIA), and cerebral infarction without residual deficits; Z95.828 Presence of other vascular implants and grafts; D50.9 Iron deficiency anemia, unspecified; Z86.718 Personal history of other venous thrombosis and embolism
CPT/HCPCS: 36415; 36600; 70551; 71045; 71275; 74018; 74230; 80048; 80053; 80202; 82140; 82375; 82550; 82553; 82607; 82728; 82746; 82805; 82962; 83540; 83550; 83735; 83880; 84100; 84145; 84439; 84443; 84484; 85014; 85018; 85025; 85049; 85379; 85384; 86705; 86709; 86803; 86850; 86900; 86920; 86927; 87340; 87426; 88305; 90935; 92610; 92611; 93005; 94644; 97162; 97166; 97530; 97535; J0360; J0885; J1815; J2060; J2185; J2405; J2765; J3010; J3370; J3430; J3490; J7042; J7050; P9016; P9017; P9034; Q9967

== ENCOUNTER 2023-05-21 00:01 | Emergency (ER) | payer MEDICARE, MEDICAID ==
[~2023-05-21] VITALS: Ht 180.3 cm; Wt 50.1 kg
[2023-05-21 00:12] VITALS: O2SAT 99
[2023-05-21 01:07] LABS: BASOPHILS % 0.5 % (0.0-2.0); EOSINOPHILS % 1.4 % (0.0-5.0); HEMATOCRIT. 30.3 % (42.0-52.0); HEMOGLOBIN. 9.6 g/dL (14.0-18.0); LYMPHOCYTES % 22.3 % (20.0-50.0); MEAN CORPUSCULAR HEMOGLOBIN 28.2 pg (28.0-32.0); MEAN CORPUSCULAR HGB CONC 31.7 g/dL (31.0-37.0); MEAN CORPUSCULAR VOLUME 89.2 fL (80.0-94.0); MEAN PLATELET VOLUME 7.8 fl (7.4-10.4); MONOCYTES % 7.2 % (2.0-8.0); NEUTROPHILS % 68.6 % (40.0-76.0); PLATELET 155 x1000/uL (130-400); RED BLOOD CELL COUNT 3.39 mill/uL (4.7-6.1); RED CELL DISTRIBUTION WIDTH 18.8 % (11.6-14.6); WHITE BLOOD COUNT 4.9 x1000/uL (4.5-11.0)
[2023-05-21 01:30] LABS: CHLORIDE 100 mEq/L (98-107); INDEX HEMOLYSI 1 (1-3); INDEX ICTERIC 1 (1-4); INDEX LIPEMIC 1 (1-3); POTASSIUM 4.6 mEq/L (3.5-5.1); SODIUM 135 mEq/L (136-145)
[2023-05-21 01:41] LABS: ALANINE AMINOTRANSFERASE 26 IU/L (13-61); ASPARTATE AMINOTRANSFERASE 61 IU/L (15-37); BILIRUBIN TOTAL 0.4 mg/dL (0.1-1.0); CARBON DIOXIDE 28 mEq/L (21-32); GLUCOSE 138 mg/dL (70-105); PROTEIN TOTAL 7.1 g/dL (6.0-8.3); TROPONIN I HIGH SENSITIVITY 54 ng/L (<78); UREA NITROGEN BLOOD 53 mg/dL (7-21)
[2023-05-21] MEDS ORDERED: SODIUM CHLORIDE 0.9% 1000ML BAG (SEPSIS BOLUS) IV ONE (01:45)
[2023-05-21 02:32] LABS: CREATININE 5.2 mg/dL (0.6-1.3)
[2023-05-21 03:05] LABS: INR 1.2; PROTHROMBIN TIME 13.1 sec (9.6-11.0)
[2023-05-21 03:50] LABS: CHLORIDE 100 mEq/L (98-107); INDEX HEMOLYSI 2 (1-3); INDEX ICTERIC 1 (1-4); INDEX LIPEMIC 1 (1-3); POTASSIUM 4.6 mEq/L (3.5-5.1); SODIUM 136 mEq/L (136-145)
[2023-05-21 03:54] LABS: TROPONIN I HIGH SENSITIVITY 58 ng/L (<78)
[2023-05-21 03:57] LABS: ALANINE AMINOTRANSFERASE 26 IU/L (13-61); ASPARTATE AMINOTRANSFERASE 58 IU/L (15-37); BILIRUBIN TOTAL 0.3 mg/dL (0.1-1.0); CALCIUM 9.1 mg/dL (8.5-10.1); CARBON DIOXIDE 31 mEq/L (21-32); GLUCOSE 163 mg/dL (70-105); PROTEIN TOTAL 7.1 g/dL (6.0-8.3); UREA NITROGEN BLOOD 56 mg/dL (7-21)
[2023-05-21 04:01] VITALS: TEMP 98.6
[2023-05-21 04:59] LABS: CREATININE 5.2 mg/dL (0.6-1.3)
[2023-05-21 05:00] LABS: CLARITY URINE BLOODY (CLEAR); COLOR URINE AMBER (YELLOW); GLUCOSE URINE NEGATIVE (NEGATIVE); KETONES URINE NEGATIVE (NEGATIVE); NITRITE URINE POSITIVE (NEGATIVE); OCCULT BLOOD URINE TRACE (NEGATIVE); PH URINE 7.5 (4.5-8.0); PROTEIN URINE 1+ (NEGATIVE); SPECIFIC GRAVITY URINE 1.021 (1.005-1.030); UROBILINOGEN URINE 0.2 E.U./dL (0.2-1.0)
[2023-05-21 05:01] LABS: LEUKOCYTE ESTERASE URINE 3+ (NEGATIVE); WBC URINE TNTC /hpf (0-2)
[2023-05-21 05:02] LABS: BACTERIA URINE 4+; SQUAMOUS EPITHELIAL CELL URINE 1+ /lpf (RARE/1+)
[2023-05-21] MEDS ORDERED: ACETAMINOPHEN 650MG/20.3ML UDC PO ONE (05:45)
[2023-05-21] MEDS ORDERED: CEFTRIAXONE 1GM PREMIX 50 ML IV ONE (07:15)
[2023-05-21 08:00] VITALS: BP 159/72; PULSE 78; RESP 12
== END 2023-05-21 08:43 | disposition left against medical advice (07) ==
LOC: ER 00:01
DX: A41.9 Sepsis, unspecified organism (principal); R65.20 Severe sepsis without septic shock; T86.11 Kidney transplant rejection; J44.1 Chronic obstructive pulmonary disease with (acute) exacerbation; I10 Essential (primary) hypertension; Z88.0 Allergy status to penicillin; Z79.899 Other long term (current) drug therapy
CPT/HCPCS: 99291; 74176; 96360; 93976; 81003; 83605; 85025; 85610; 87040; 87086; 84484; 36415; 84145; 71045; 93005; 80053; J7030